=== PATIENT | female | born 1965 | race Caucasian/White ===

== ENCOUNTER 2018-07-17 07:10 | Emergency (ER) | payer MEDICAID ==
[~2018-07-17] VITALS: Ht 157.5 cm; Wt 66.7 kg
[~2018-07-17 07:10] MED LIST: LYR50 PO; SUCR1TAB35 PO
[2018-07-17 07:22] VITALS: BP 176/85
--- NOTE | 2018-07-17 07:26 | NUR ---
C/O COUGH, BODYACHES, THROAT PAIN X 3 DAYS HX---RHEUMATOID ARTHRITIS, FIBROMYALGIA, HTN, DM RX---TRAMADOL, METFORMIN, METOPROLOL
[2018-07-17] MEDS ORDERED: KETOROLAC 60 MG/2 ML VIAL IM ONE (07:35)
[2018-07-17] MEDS ORDERED: ALBUTEROL SULFATE/IPRATROPIU 3 ML SOL IH ONE (07:35)
[2018-07-17] MEDS ORDERED: hydrOXYzine HCL 25 MG TAB PO ONE (07:35)
--- NOTE | 2018-07-17 08:02 | NUR ---
Flu specimen collected and given to karla Scruggs
[2018-07-17 08:41] LABS: BILIRUBIN,URINE NEGATIVE (NEGATIVE); BLOOD, URINE 2+ (NEGATIVE); COLOR,URINE YELLOW (YELLOW); LEUKOCYTE ESTERASE ,URINE 1+ (NEGATIVE); NITRITE, URINE NEGATIVE (NEGATIVE); UGLUCOSE NEGATIVE (NEGATIVE)
[2018-07-17 08:45] LABS: APPEARANCE,URINE SLIGHTLY HAZY (CLEAR); RBC,URINE 3-10 (FEW) /HPF (0-5)
[2018-07-17] MEDS ORDERED: cefTRIAXone 1,000 MG in LIDOCAINE 1% ***ER ONLY *** 2.1 ML IM ONE (11:10)
[2018-07-17] MEDS ORDERED: cefTRIAXone 1,000 MG VIAL ONE (11:22)
[2018-07-17] MEDS ORDERED: LIDOCAINE MPF 1% 5mL VIAL ONE (11:23)
--- NOTE | 2018-07-17 11:23 | NUR ---
PT RESTING COMFORTABLY AT THIS TIME STILL C/O PAIN 12/06, ANTIBIOTICS GIVEN PER ORDER, WILL CONTINUE TO MONITOR
[2018-07-17 12:15] VITALS: BP 138/94
--- NOTE | 2018-07-17 12:15 | NUR ---
Patient discharged with v/s stable. Written and verbal after care instructions given and explained. Patient alert, oriented and verbalized understanding of instructions. Ambulatory with steady gait. All questions addressed prior to discharge. ID band removed. Patient advised to follow up with PMD. Rx of Motrin, Promethazine, Levaquin given. Patient educated on indication of medication including possible reaction and side effects. Opportunity to ask questions provided and answered.
== END 2018-07-17 12:15 | disposition home or self-care (01) ==
LOC: MED 07:10
DX: J06.9 Acute upper respiratory infection, unspecified (principal); N39.0 Urinary tract infection, site not specified; I10 Essential (primary) hypertension; E11.9 Type 2 diabetes mellitus without complications; M79.7 Fibromyalgia; M06.9 Rheumatoid arthritis, unspecified; Z88.6 Allergy status to analgesic agent
CPT/HCPCS: 36415; 81001; 87086; 87804; 94640; 96372; 99283; J0696; J1885; J2001; J7620

== ENCOUNTER 2023-03-01 10:31 | Inpatient (IN) | payer MEDICAID ==
[~2023-03-01] VITALS: Ht 165.1 cm; Wt 64.9 kg
[2023-03-01] MEDS ORDERED: LIDOCAINE/EPI MPF 1%1:200000 30 ML VIAL INJ ONE (12:34)
[2023-03-01] MEDS ORDERED: ceFAZolin 2,000 MG VIAL ONE (12:34)
[2023-03-01] MEDS ORDERED: BUPIVACAINE-MPF 0.25% 30 ML VIAL INJ ONE (13:22)
[2023-03-01] MEDS ORDERED: MIDAZOLAM 5 MG/5 ML VIAL ONE (13:45)
[2023-03-01] MEDS ORDERED: fentaNYL citrate 0.05 MG/ML VIAL ONE (13:48)
[2023-03-01] MEDS ORDERED: PROPOFOL 200 MG/20 ML VIAL IV ONE (13:51)
[2023-03-01] MEDS ORDERED: KETAMINE 500 MG/5 ML VIAL ONE (13:52)
[2023-03-01 15:30] VITALS: PULSE 76; RESP 20; O2SAT 97
[2023-03-01] MEDS ORDERED: ONDANSETRON 4 MG/2 ML VIAL IVP PRN (15:30)
[2023-03-01 15:56] VITALS: RESP 20
[2023-03-01 16:00] VITALS: BP 117/68; PULSE 76; PULSE 98; RESP 20; TEMP 96.3; O2SAT 97
[2023-03-01] MEDS ORDERED: INSULIN LISPRO SLIDING SCALE 100 UNITS/ML VIAL SUBQ PRN ×2 (19:10)
[2023-03-01] MEDS ORDERED: DEXTROSE 50% 50 ML SYR IVP PRN (19:10)
[2023-03-01] MEDS ORDERED: traMADol 50 MG TAB PO PRN (19:15)
[2023-03-01 20:00] VITALS: BP 129/72; PULSE 81; PULSE 85; RESP 18; TEMP 97.7; O2SAT 95
[2023-03-01] MEDS: BLOOD GLUCOSE MONITORING 1 DEV DEV FS SCH (20:01)
[2023-03-02] VITALS: BP 114/66; PULSE 87; PULSE 89; RESP 17; TEMP 97.4; O2SAT 97
[2023-03-02 04:00] VITALS: BP 126/69; PULSE 82; PULSE 95; RESP 18; TEMP 97.4; O2SAT 97
[2023-03-02] MEDS: BLOOD GLUCOSE MONITORING 1 DEV DEV FS SCH ×2 (06:48→11:07)
[2023-03-02 08:00] VITALS: BP 125/66; PULSE 73; PULSE 77; RESP 18; TEMP 97.2; O2SAT 95; O2SAT 97
[2023-03-02] MEDS ORDERED: METOPROLOL SUCCINATE 50 MG TABER PO SCH (09:00)
[2023-03-02] MEDS ORDERED: lisinopriL 10 MG TAB PO SCH (09:00)
[2023-03-02] MEDS ORDERED: AMOXIL/CLAVULANATE 875/125 MG 1 TAB PO SCH (10:00)
[2023-03-02 10:44] VITALS: PULSE 68; RESP 18; O2SAT 95
[2023-03-02] MEDS ORDERED: AUG875 PO (11:07)
[2023-03-02 12:00] VITALS: BP 110/59; PULSE 65; PULSE 72; RESP 18; TEMP 97.5; O2SAT 95
[2023-03-02] MEDS ORDERED: PREGABALIN 50 MG CAP PO SCH (21:00)
[2023-03-03] MEDS ORDERED: SUCRALFATE 1 GM TAB PO SCH (09:00)
[2023-03-03] MEDS ORDERED: LISI2.5T14 PO (16:33)
[2023-03-03] MEDS ORDERED: METF-346 PO (16:33)
[2023-03-03] MEDS ORDERED: METO-744 PO (16:33)
== END 2023-03-02 12:50 | disposition home or self-care (01) | DRG 385 ==
LOC: MDS 10:31 → MMU 10:33 → MTU 15:09 → MDS 15:09 → MTU 15:39
PROVIDERS: ADMIT Surgery; ATTEND Surgery
PROC: 0JB90ZZ Excision of Buttock Subcutaneous Tissue and Fascia, Open Approach (ICD-10-PCS; principal; 2023-03-01 12:30)
DX: R22.2 Localized swelling, mass and lump, trunk (principal); J96.01 Acute respiratory failure with hypoxia; J69.0 Pneumonitis due to inhalation of food and vomit; E11.9 Type 2 diabetes mellitus without complications
CPT/HCPCS: 71045; 82948; 87081; 93005; J1815; J2001; J2250; J2704; J3010; J3490

== ENCOUNTER 2023-03-03 11:58 | Observation (INO) | payer MEDICAID ==
[~2023-03-03] VITALS: Ht 154.9 cm; Wt 67.1 kg
[~2023-03-03 11:58] MED LIST changes: +AUG875 PO
[2023-03-03 12:06] VITALS: BP 134/74; PULSE 77; RESP 16; TEMP 97.9; O2SAT 94
[2023-03-03] MEDS ORDERED: NACL 0.9% 1,000 ML IV SCH (13:10)
[2023-03-03] MEDS ORDERED: AZITHROMYCIN 500 MG in DEXTROSE 5% 250 ML IV ONE (13:15)
[2023-03-03] MEDS ORDERED: cefTRIAXone 1,000 MG VIAL ONE (13:24)
[2023-03-03 13:29] LABS: BASOPHILS % (AUTO) 0.6 % (0.0-2.0); EOSINOPHILS # (AUTO) 0.2 K/uL (0-0.4); EOSINOPHILS % (AUTO) 3.2 % (0.0-4.0); HEMATOCRIT 35.3 % (36-48); HEMOGLOBIN 11.9 g/dL (12.0-16.0); LYMPHOCYTES # (AUTO) 1.8 K/uL (2.5-16.5); LYMPHOCYTES % (AUTO) 23.2 % (20.5-51.1); MEAN CORPUSCULAR HEMOGLOBIN 28 pg (27-31); MEAN CORPUSCULAR HGB CONC 34 g/dL (33-37); MEAN CORPUSCULAR VOLUME 84.3 fL (80-94); MONOCYTES # (AUTO) 0.5 K/uL (0.8-1.0); MONOCYTES % (AUTO) 6.8 % (1.7-9.3); NEUTROPHILS # (AUTO) 5.1 K/uL (1.8-7.7); NEUTROPHILS % (AUTO) 66.2 % (42.2-75.2); PLATELET COUNT (AUTO) 235 K/uL (140-450); RED BLOOD CELL COUNT(AUTO) 4.19 MIL/uL (4.20-5.40); RED CELL DISTRIBUTION WIDTH 14.3 % (11.6-13.7); WHITE BLOOD COUNT (AUTO) 7.7 K/uL (4.8-10.8)
[2023-03-03] MEDS ORDERED: AZITHROMYCIN 500 MG INJ VIAL IV ONE (13:47)
[2023-03-03 13:51] LABS: ANION GAP 8.2 (8-16); CALCIUM 9.6 mg/dL (8.5-10.1); CARBON DIOXIDE 31.7 mmol/L (21-32); CREATININE 0.7 mg/dL (0.6-1.3); POTASSIUM 3.9 mmol/L (3.5-5.1); TOTAL BILIRUBIN 0.8 mg/dL (0.0-1.0); TOTAL PROTEIN, SERUM 7.8 g/dL (6.4-8.2)
[2023-03-03 13:53] LABS: CREATINE KINASE, TOTAL 93 U/L (26-192); INR 0.9 (0.8-1.2); PARTIAL THROMBOPLASTIN TIME 25.9 secs (22-35.6); PROTHROMBIN TIME 9.4 secs (10.8-13.4)
[2023-03-03 13:54] LABS: LACTIC ACID 1.2 mmol/L (0.4-2.0)
[2023-03-03] MEDS ORDERED: METF-346 PO (16:33)
[2023-03-03] MEDS ORDERED: METO-744 PO (16:33)
[2023-03-03] MEDS ORDERED: LISI2.5T14 PO (16:33)
[2023-03-03] MEDS ORDERED: MAG SULF 2000 MG/WATER PREMIX 50 ML IV PRN (17:05)
[2023-03-03] MEDS ORDERED: MORPHINE SULFATE 2 MG/ML SYR IVP PRN (17:05)
[2023-03-03] MEDS ORDERED: POTASSIUM CHLORIDE 10 MEQ TABER PO PRN (17:05)
[2023-03-03] MEDS ORDERED: MAGNESIUM OXIDE 400 MG TAB PO PRN (17:05)
[2023-03-03] MEDS ORDERED: KCL 20 MEQ IN 100 mL PREMIX 200 ML IV PRN (17:05)
[2023-03-03] MEDS ORDERED: DEXTROSE 50% 50 ML SYR IVP PRN (17:10)
[2023-03-03] MEDS ORDERED: INSULIN LISPRO SLIDING SCALE 100 UNITS/ML VIAL SUBQ PRN (17:10)
[2023-03-03 20:25] VITALS: BP 131/76; PULSE 67; RESP 16; TEMP 97.7; O2SAT 96
[2023-03-03] MEDS: BLOOD GLUCOSE MONITORING 1 DEV DEV FS SCH (21:41)
[2023-03-04 04:00] VITALS: BP 127/78; PULSE 70; RESP 16; TEMP 98.2; O2SAT 93
[2023-03-04 06:29] LABS: BASOPHILS % (AUTO) 0.5 % (0.0-2.0); EOSINOPHILS # (AUTO) 0.2 K/uL (0-0.4); EOSINOPHILS % (AUTO) 3.5 % (0.0-4.0); HEMATOCRIT 32.2 % (36-48); HEMOGLOBIN 10.9 g/dL (12.0-16.0); LYMPHOCYTES # (AUTO) 1.7 K/uL (2.5-16.5); LYMPHOCYTES % (AUTO) 26.7 % (20.5-51.1); MEAN CORPUSCULAR HEMOGLOBIN 28 pg (27-31); MEAN CORPUSCULAR HGB CONC 34 g/dL (33-37); MONOCYTES # (AUTO) 0.4 K/uL (0.8-1.0); NEUTROPHILS % (AUTO) 62.3 % (42.2-75.2); PLATELET COUNT (AUTO) 226 K/uL (140-450); RED BLOOD CELL COUNT(AUTO) 3.83 MIL/uL (4.20-5.40); RED CELL DISTRIBUTION WIDTH 14.1 % (11.6-13.7); WHITE BLOOD COUNT (AUTO) 6.3 K/uL (4.8-10.8)
[2023-03-04 06:40] LABS: ALBUMIN 3.5 g/dL (3.4-5.0); ANION GAP 11.3 (8-16); CREATININE 0.6 mg/dL (0.6-1.3); POTASSIUM 3.3 mmol/L (3.5-5.1); TOTAL BILIRUBIN 0.7 mg/dL (0.0-1.0); TOTAL PROTEIN, SERUM 6.9 g/dL (6.4-8.2)
[2023-03-04] MEDS: BLOOD GLUCOSE MONITORING 1 DEV DEV FS SCH ×2 (06:44→12:27)
[2023-03-04 08:00] VITALS: PULSE 76; RESP 20; O2SAT 96
[2023-03-04] MEDS ORDERED: ALBU0.0912 INH (08:59)
[2023-03-04] MEDS ORDERED: NON-FORMULARY ITEM (Lisinopril 1 TAB) PO SCH (09:00)
[2023-03-04] MEDS ORDERED: NON-FORMULARY ITEM (Metoprolol Succinate (Metoprolol Succinate Er) 1 TAB) PO SCH (09:00)
[2023-03-04] MEDS ORDERED: lisinopriL 5 MG TAB PO SCH (09:00)
[2023-03-04] MEDS ORDERED: AZITHROMYCIN 500 MG in DEXTROSE 5% 250 ML IV SCH (09:00)
[2023-03-04] MEDS ORDERED: METOPROLOL SUCCINATE 50 MG TABER PO SCH (09:00)
[2023-03-04 12:48] VITALS: BP 125/77; PULSE 76; RESP 20; TEMP 97.9
== END 2023-03-04 14:33 | disposition home or self-care (01) ==
LOC: MED 11:58 → MMU 17:05 → MTU 20:01
PROVIDERS: ADMIT Internal Medicine; ATTEND Internal Medicine
DX: J96.01 Acute respiratory failure with hypoxia (principal); J69.0 Pneumonitis due to inhalation of food and vomit; I10 Essential (primary) hypertension; E11.9 Type 2 diabetes mellitus without complications; E78.5 Hyperlipidemia, unspecified; E87.6 Hypokalemia; M79.7 Fibromyalgia; Z79.84 Long term (current) use of oral hypoglycemic drugs; Z79.899 Other long term (current) drug therapy
CPT/HCPCS: 36415; 71045; 71275; 80053; 82550; 82948; 83605; 83735; 83880; 84484; 85025; 85610; 85730; 87040; 87081; 93005; 96365; 96366; 96367; 96372; 99291; G0378; J0456; J0696; J1644; J1815; J7060; Q9967